=== PATIENT | male | born 1965 | race Caucasian/White ===

== ENCOUNTER 2016-05-26 01:08 | Emergency (ER) | payer OTHER ==
[2016-05-26 01:15] VITALS: RESP 18
[2016-05-26] MEDS ORDERED: IPRATROPIUM-ALBUTEROL 3 ML NEB INHALATION STA (01:39)
[2016-05-26] MEDS ORDERED: RX INFO: IV CONTRAST WAS GIVEN 1 EACH MISC MISCELLANE PRN (01:39)
[2016-05-26] MEDS ORDERED: methylPREDNISolone SOD SUCCI 125 MG/2 ML VIAL IV STA (01:39)
[2016-05-26 02:15] LABS: Anion Gap 15 mmol/L; Aty Lym Flag Marked; Blood Urea Nitrogen 10 mg/dL (9-20); CH 31.6; CHCM 34.2; Calcium 9.4 mg/dL (8.4-10.2); Carbon Dioxide 18 mmol/L (22-30); Chloride 109 mmol/L (98-107); Glucose 107 mg/dL (74-99); HDW 2.35; HGB 15.8 gm/dL (13.0-17.5); MCH 30.5 pg (25.0-35.0); MCHC 32.9 g/dL (31.0-37.0); MCV 92.8 fL (80.0-100.0); Mean Platelet Volume 6.7; Non-African American GFR(MDRD) >60 (>60 ml/min/1.73 sqM); Potassium 4.3 mmol/L (3.5-5.1); RBC 5.18 m/uL (4.30-5.90); RDW 13.6 % (11.5-15.5); Sodium 142 mmol/L (137-145); WBC 10.2 k/uL (3.8-10.6); WBC (Perox) 9.97
[2016-05-26 02:55] LABS: Add Differential Manual Differential
[2016-05-26 02:58] LABS: Manual Review Performed; Nucleated Red Blood Cells 0 /100 WBC (0-0); Total Cells Counted 100
[2016-05-26] MEDS ORDERED: ONDANSETRON 4 MG/2 ML VIAL IVP STA (02:58)
--- NOTE | 2016-05-26 03:10 | CT ---
INDICATION: Hemoptysis TECHNIQUE: CT acquisition was performed through the chest following the administration of IV contrast. Coronal and sagittal reformatted images were provided. DOSIMETRY: CTDIvol 8.40 mGy; Total DLP 313.10 mGy-cm COMPARISON: None. FINDINGS: Thoracic aorta and main pulmonary artery are normal in course and caliber. Heart size is normal and there is no pericardial effusion. Multicompartment mediastinal lymph nodes are not significant by size criteria. There is moderate-severe paraseptal emphysema in the upper lobes and mild paraseptal emphysema in the lower lobes. There is a large bulla at the right lung apex measuring 7.6 cm AP x 7.3 cm transverse x 4.0 cm craniocaudal. There are patchy groundglass opacities in the apical posterior left upper lobe and in the bilateral dependent lower lobes, left greater than right. There is no pleural effusion or pneumothorax. Visualized upper abdomen is unremarkable. There are no acute osseous findings. IMPRESSION: 1. Areas of groundglass opacity in the left upper lobe and bilateral lower lobes, nonspecific, differential includes atypical pneumonia, smoking related lung disease, or less likely areas of mild pulmonary hemorrhage. Imaging follow-up recommended. 2. Paraseptal emphysema, moderate-severe in the upper lobes with large right apical bulla measuring 7.6 x 7.3 x 4.0 cm.
[2016-05-26] MEDS ORDERED: LEVOFLOXACIN 750MG-D5W PMX 750 MG in DEXTROSE/WATER 1 150ML.BAG IVPB STA (04:38)
--- NOTE | 2016-05-26 04:46 | ED ---
URI HPI - General Chief Complaint: Upper Respiratory Infection Stated Complaint: Chest Tight/Coughing up Blood Time Seen by Provider: 05/26/16 01:27 Source: patient Mode of arrival: ambulatory Limitations: no limitations - History of Present Illness Initial Comments: Resented with the coughing up blood, he been spitting up blood for about 2.5 days he is a smoker and has been smoking for quite some time denies any fever or chills he did spit up bright red blood when I was observing him in the ER. Complaining about chills chest pain shortness of breath for the last 5 days also very tired and fatigued. Denies any headaches no blurred vision no abdominal pain no frequency urgency dysuria no signs of TIA or CVA - Related Data Home Medications Medication Instructions Recorded Confirmed No Known Home Medications [No 05/26/16 05/26/16 Known Home Medications] Allergies Allergy/AdvReac Type Severity Reaction Status Date / Time No Known Allergies Allergy Verified 05/26/16 01:15 Review of Systems ROS Statement: Those systems with pertinent positive or pertinent negative responses have been documented in the HPI. ROS Other: All systems not noted in ROS Statement are negative. Past Medical History Past Medical History: No Reported History History of Any Multi-Drug Resistant Organisms: None Reported Past Surgical History: No Surgical Hx Reported Past Psychological History: No Psychological Hx Reported Smoking Status: Current every day smoker Past Alcohol Use History: Occasional Past Drug Use History: Marijuana General Exam - General Exam Comments Initial Comments: General: The patient is awake and alert, in no distress, and does not appear acutely ill. Skin: Skin is warm and dry and no rashes or lesions are noted. Eye: Pupils are equal, round and reactive to light, extra-ocular movements are intact; there is normal conjunctiva bilaterally. Ears, nose, mouth and throat: There are moist mucous membranes and no oral lesions. Neck: The neck is supple, there is no tenderness or JVD. Cardiovascular: There is a regular rate and rhythm. No murmur, rub or gallop is appreciated. Respiratory: To auscultation bilateral, noticed crackles at the bases Gastrointestinal: Soft, non-distended, non-tender abdomen without masses or organomegaly noted. There is no rebound or guarding present. Bowel sounds are unremarkable. Back: There is no tenderness to palpation in the midline. There is no obvious deformity. Musculoskeletal: Normal ROM, no tenderness, There is no pedal edema. There is no calf tenderness or swelling. No cords were appreciated. Neurological: CN II-XII intact, Cranial nerves III through XII are intact. There are no obvious motor or sensory deficits. Coordination appears grossly intact. Speech is normal. Psychiatric: Cooperative, appropriate mood & affect, normal judgment. 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 STEMI like picture in lead 23 and aVF but it's not clearly stemming go to compare that with the old EKG all the other leads look within normal range Medical Decision Making - Lab Data Result diagrams: 05/26/16 01:25 05/26/16 01:25 Lab Results 05/26/16 05/26/16 05/26/16 Range/Units 01:25 01:25 01:25 WBC 10.2 (3.8-10.6) k/uL RBC 5.18 (4.30-5.90) m/uL Hgb 15.8 (13.0-17.5) gm/dL Hct 48.0 (39.0-53.0) % MCV 92.8 (80.0-100.0) fL MCH 30.5 (25.0-35.0) pg MCHC 32.9 (31.0-37.0) g/dL RDW 13.6 (11.5-15.5) % Plt Count 252 (150-450) k/uL Neutrophils % (Manual) 49.0 % Lymphocytes % (Manual) 38.0 % Monocytes % (Manual) 9.0 % Eosinophils % (Manual) 4.0 % Neutrophils # (Manual) 5.0 (1.3-7.7) k/uL Lymphocytes # (Manual) 3.9 (1.0-4.8) k/uL Monocytes # (Manual) 0.9 (0-1.0) k/uL Eosinophils # (Manual) 0.4 (0-0.7) k/uL Nucleated RBCs 0 (0-0) /100 WBC Manual Slide Review Performed D-Dimer 0.21 (<0.60) mg/L FEU Sodium 142 (137-145) mmol/L Potassium 4.3 (3.5-5.1) mmol/L Chloride 109 H (98-107) mmol/L Carbon Dioxide 18 L (22-30) mmol/L Anion Gap 15 mmol/L BUN 10 (9-20) mg/dL Creatinine 0.80 (0.66-1.25) mg/dL Est GFR (MDRD) Af Amer >60 (>60 ml/min/1.73 sqM) Est GFR (MDRD) Non-Af >60 (>60 ml/min/1.73 sqM) Glucose 107 H (74-99) mg/dL Calcium 9.4 (8.4-10.2) mg/dL Troponin I (0.000-0.034) ng/mL Influenza Type A RNA (Not Detectd) Influenza Type B (PCR) (Not Detectd) 05/26/16 05/26/16 Range/Units 01:25 01:25 WBC (3.8-10.6) k/uL RBC (4.30-5.90) m/uL Hgb (13.0-17.5) gm/dL Hct (39.0-53.0) % MCV (80.0-100.0) fL MCH (25.0-35.0) pg MCHC (31.0-37.0) g/dL RDW (11.5-15.5) % Plt Count (150-450) k/uL Neutrophils % (Manual) % Lymphocytes % (Manual) % Monocytes % (Manual) % Eosinophils % (Manual) % Neutrophils # (Manual) (1.3-7.7) k/uL Lymphocytes # (Manual) (1.0-4.8) k/uL Monocytes # (Manual) (0-1.0) k/uL Eosinophils # (Manual) (0-0.7) k/uL Nucleated RBCs (0-0) /100 WBC Manual Slide Review D-Dimer (<0.60) mg/L FEU Sodium (137-145) mmol/L Potassium (3.5-5.1) mmol/L Chloride (98-107) mmol/L Carbon Dioxide (22-30) mmol/L Anion Gap mmol/L BUN (9-20) mg/dL Creatinine (0.66-1.25) mg/dL Est GFR (MDRD) Af Amer (>60 ml/min/1.73 sqM) Est GFR (MDRD) Non-Af (>60 ml/min/1.73 sqM) Glucose (74-99) mg/dL Calcium (8.4-10.2) mg/dL Troponin I <0.012 (0.000-0.034) ng/mL Influenza Type A RNA Not Detected (Not Detectd) Influenza Type B (PCR) Not Detected (Not Detectd) Disposition Clinical Impression: Hemoptysis, Pneumonia, Pulmonary hemorrhage Disposition: ADMITTED IP TO THIS HOSP Condition: Good
[2016-05-26 05:47] VITALS: TEMP 97.6
[2016-05-26] MEDS ORDERED: NALOXONE 0.4 MG/ML 1 ML VIAL IV PRN (06:02)
[2016-05-26] MEDS ORDERED: ACETAMINOPHEN TAB 325 MG TAB PO PRN (06:02)
[2016-05-26] MEDS ORDERED: ONDANSETRON 4 MG/2 ML VIAL IVP PRN (06:02)
[2016-05-26] MEDS ORDERED: HYDROmorphone 2 MG TAB PO PRN (06:02)
[2016-05-26 07:22] VITALS: BP 107/60; PULSE 107
== END 2016-05-26 09:00 | disposition left against medical advice (07) ==
LOC: EC 01:08 → 6SEL 06:02 → UNDOADMIN 06:02 → UNDODISIN 09:10
DX: J18.9 Pneumonia, unspecified organism (principal); R04.2 Hemoptysis; R04.89 Hemorrhage from other sites in respiratory passages; F17.200 Nicotine dependence, unspecified, uncomplicated
CPT/HCPCS: 99284 ×2; 96365 ×2; 96366 ×2; 96375 ×2; 36415; 94640; 93005; 85379; 80048; 84484; 85025; 87502; 71260; J2930; J1956; Q9967; 99285

== ENCOUNTER 2021-01-28 11:09 | Observation (INO) | payer OTHER ==
[2021-01-28] MEDS ORDERED: SODIUM CHLORIDE 0.9% 1,000 ML IV STA (12:01)
[2021-01-28] MEDS ORDERED: VANCOMYCIN IV PER PHARMACY 1 EACH MISC MISCELLANE PRN ×2 (12:01→14:15)
[2021-01-28] MEDS ORDERED: ONDANSETRON 4 MG/2 ML VIAL IVP STA (12:01)
[2021-01-28] MEDS ORDERED: PIPERACILLIN-TAZOBACTAM 3.375 GM in SODIUM CHLORIDE 0.9% 100 ML IVPB STA (12:01)
[2021-01-28] MEDS ORDERED: HYDROmorphone 1 MG/ML 1 ML SYRINGE IVP STA ×2 (12:01→14:14)
[2021-01-28] MEDS ORDERED: KETOROLAC 30 MG/ML 1 ML VIAL IVP STA (12:17)
[2021-01-28 12:39] LABS: HCT 44.2 % (39.0-53.0); HGB 14.9 gm/dL (13.0-17.5); MCH 30.2 pg (25.0-35.0); MCHC 33.8 g/dL (31.0-37.0); MCV 89.4 fL (80.0-100.0); Mean Platelet Volume 7.2; Platelet Count 267 k/uL (150-450); RBC 4.95 m/uL (4.30-5.90); WBC 13.5 k/uL (3.8-10.6)
[2021-01-28 12:51] LABS: Partial Thromboplastin Time 25.1 sec (22.0-30.0); Prothrombin Time 10.4 sec (9.0-12.0)
[2021-01-28 12:53] LABS: ALT 17 U/L (4-49); AST 20 U/L (17-59); African American GFR (CKD) >90 (>60 ml/min/1.73 sqM); Albumin 3.7 g/dL (3.5-5.0); Alkaline Phosphatase 81 U/L (38-126); Anion Gap 11 mmol/L; Blood Urea Nitrogen 10 mg/dL (9-20); Calcium 9.2 mg/dL (8.4-10.2); Carbon Dioxide 22 mmol/L (22-30); Chloride 103 mmol/L (98-107); Glucose 122 mg/dL (74-99); Non-African American GFR(CKD) >90 (>60 ml/min/1.73 sqM); Potassium 3.6 mmol/L (3.5-5.1); Sodium 136 mmol/L (137-145); Total Bilirubin 0.5 mg/dL (0.2-1.3); Total Protein 6.8 g/dL (6.3-8.2)
[2021-01-28] MEDS ORDERED: VANCOMYCIN 1,750 MG in SODIUM CHLORIDE 0.9% 500 ML 500 ML IVPB ONE (13:00)
--- NOTE | 2021-01-28 13:18 | XR ---
EXAMINATION TYPE: XR hand complete LT DATE OF EXAM: 01/28/2021 CLINICAL HISTORY: Pain and swelling and redness after work injury worse over fifth finger TECHNIQUE: Frontal, lateral and oblique images of the left hand are obtained. COMPARISON: None. FINDINGS: Moderate soft tissue swelling over fifth finger. Incomplete extension of the phalanges wit h mild soft tissue swelling over other digits. Punctate 1 mm radiodense foreign body in the soft tiss ue near level of second metacarpal head. There is no acute fracture/dislocation evident in the left h and. Mild to moderate narrowing throughout the PIP and DIP joints. No suspicious bony destruction. IMPRESSION: As above.
--- NOTE | 2021-01-28 13:45 | ED ---
General Adult HPI - General Source: patient, RN notes reviewed Mode of arrival: wheelchair Limitations: no limitations <Shiloh Mayer - Last Filed: 01/28/21 23:30> <Kyle Moya - Last Filed: 01/29/21 07:45> - General Chief complaint: Extremity Injury, Upper Stated complaint: Hand infection Time Seen by Provider: 01/28/21 11:43 - History of Present Illness Initial comments: 55-year-old male presents to the emergency department for evaluation of injury to the left hand. 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 Patient states the injury was very unremarkable and was not bothersome until this week when it became more painful and he developed swelling. Patient states the purplish discoloration to his fifth digit did not occur until yesterday and is now accompanied by a significant amount of pain. Patient states the injury was not traumatic or constricting therefore he was not evaluated prior to today. Patient states he is able to sense touch, but has pain with movement and palpation. States the remainder of his hand does feel swollen and mildly uncomfortable. Patient denies fever, chills, headache, chest pain, shortness of breath, or difficulty breathing. Denies any additional injuries. (Shiloh Mayer) - Related Data Home Medications Medication Instructions Recorded Confirmed No Known Home Medications 05/26/16 01/28/21 Allergies Allergy/AdvReac Type Severity Reaction Status Date / Time No Known Allergies Allergy Verified 01/28/21 11:57 Review of Systems ROS Other: All systems not noted in ROS Statement are negative. <Shiloh Mayer - Last Filed: 01/28/21 23:30> ROS Other: All systems not noted in ROS Statement are negative. <Kyle Moya - Last Filed: 01/29/21 07:45> ROS Statement: Those systems with pertinent positive or pertinent negative responses have been documented in the HPI. Past Medical History Past Medical History: No Reported History History of Any Multi-Drug Resistant Organisms: None Reported Past Surgical History: No Surgical Hx Reported Past Psychological History: No Psychological Hx Reported Smoking Status: Current every day smoker Past Alcohol Use History: Occasional Past Drug Use History: Marijuana <Shiloh Mayer - Last Filed: 01/28/21 23:30> General Exam Limitations: no limitations General appearance: alert, in no apparent distress, other (Well-developed, well- nourished male in no acute distress. Initial temperature 97.7, pulse 125, respirations 18, blood pressure 116/76, pulse ox 99% on room air) Eye exam: Present: normal appearance, PERRL. Absent: scleral icterus, conjunctival injection, periorbital swelling, periorbital tenderness Neck exam: Present: normal inspection. Absent: tenderness, meningismus, lymphadenopathy Respiratory exam: Present: normal lung sounds bilaterally. Absent: respiratory distress, wheezes, rales, rhonchi, stridor Cardiovascular Exam: Present: normal rhythm, tachycardia GI/Abdominal exam: Present: soft, normal bowel sounds. Absent: distended, tenderness, guarding, rebound, rigid Left Forearm Wrist exam: Present: normal inspection, full ROM. Absent: tenderness, swelling Hand Wrist exam: Present: tenderness, swelling, ecchymosis, other (Diffuse mild edema of the left hand and all 5 digits, however, fifth digit is significantly swollen and discolored with a blisterlike appearance on the dorsal surface; it is unblanchable; sensation intact, range of motion decreased.) Vascular: Present: vascular compromise (Diminished capillary refill left fifth digit), radial pulse, brachial pulse, ulnar pulse Neurological exam: Present: alert, oriented X3, CN II-XII intact Psychiatric exam: Present: normal affect, normal mood Skin exam: Present: warm, dry, intact. Absent: rash <Shiloh Mayer - Last Filed: 01/28/21 23:30> Course <Shiloh Mayer - Last Filed: 01/28/21 23:30> <Kyle Moya - Last Filed: 01/29/21 07:45> Vital Signs 01/28/21 01/28/21 01/28/21 11:18 14:00 16:00 Temperature 97.7 F 96 F L 97.8 F Pulse Rate 125 H 80 85 Respiratory 18 18 18 Rate Blood Pressure 168/76 105/60 107/65 O2 Sat by Pulse 99 98 95 Oximetry - Reevaluation(s) Reevaluation #1: 01/28/21 13:45 Rates pain 7 out of 10 and states this is tolerable. Declines need for any further pain medication. (Shiloh Mayer) Reevaluation #2: 01/28/21 14:[address] Coppola who will see this patient in consultation. She did recommend I&D which was performed in the emergency department. This was a very superficial pus filled bulla of the fifth digit left hand. Copious amounts of pus was obtained. Culture was sent. The patient will be admitted to internal medicine with orthopedics on consult. 01/29/21 07:44 (Kyle Moya) Procedures - Incision & Drainage Consent Obtained: verbal consent Site: hand Size (cm): 6 I&D Cleaning Method: Chloroprep Sterile Field Used?: No Scalpel Used: #11 Needle Aspiration Performed?: No Irrigation Performed?: Yes I&D Drainage Obtained: Pus Culture Obtained?: Yes Patient Tolerated Procedure: well <Kyle Moya - Last Filed: 01/29/21 07:45> Medical Decision Making - Lab Data Result diagrams: 01/28/21 12:22 01/28/21 12:22 - Radiology Data Radiology results: report reviewed, image reviewed <MorenoShiloh - Last Filed: 01/28/21 23:30> - Lab Data Result diagrams: 01/28/21 12:22 01/28/21 12:22 <Kyle Moya - Last Filed: 01/29/21 07:45> - Medical Decision Making 55-year-old male with no past medical history presents to the emergency department for evaluation of injury to the fifth digit of the left hand. Upon exam, left hand and digits 1 through 4 are mildly swollen with no discoloration. However, fifth digit is pale and has a purplish hue with significant edema and an extensive blister appearing fluid-filled area. No loss of sensation; decreased range of motion secondary to pain and swelling. Patient was given IV antibiotics and pain medication. Laboratory studies were reviewed; patient has a mildly elevated white blood cell count of 13.5. This patient's care was discussed with my attending, Dr. Moya, who spoke with Dr. Coppola for orthopedics. Incision and drainage of the affected digit per Dr. Moya alleviated a significant amount of discomfort and resulted in copious amount of drainage. Patient will be admitted to medicine with a consult to orthopedics for further evaluation of the injured left fifth digit. Pain is well-controlled and patient is agreeable to admission. (Shiloh Mayer) - Lab Data Lab Results 01/28/21 01/28/21 01/28/21 Range/Units 12:22 12:22 12:22 WBC 13.5 H (3.8-10.6) k/uL RBC 4.95 (4.30-5.90) m/uL Hgb 14.9 (13.0-17.5) gm/dL Hct 44.2 (39.0-53.0) % MCV 89.4 (80.0-100.0) fL MCH 30.2 (25.0-35.0) pg MCHC 33.8 (31.0-37.0) g/dL RDW 13.0 (11.5-15.5) % Plt Count 267 (150-450) k/uL MPV 7.2 Neutrophils % (Manual) 85 % Lymphocytes % (Manual) 8 % Monocytes % (Manual) 6 % Basophils % (Manual) 1 % Neutrophils # (Manual) 11.48 H (1.3-7.7) k/uL Lymphocytes # (Manual) 1.08 (1.0-4.8) k/uL Monocytes # (Manual) 0.81 (0-1.0) k/uL Basophils # (Manual) 0.14 (0-0.2) k/uL Nucleated RBCs 0 (0-0) /100 WBC Manual Slide Review Performed RBC Morphology Normal PT 10.4 (9.0-12.0) sec INR 1.0 (<1.2) APTT 25.1 (22.0-30.0) sec Sodium 136 L (137-145) mmol/L Potassium 3.6 (3.5-5.1) mmol/L Chloride 103 (98-107) mmol/L Carbon Dioxide 22 (22-30) mmol/L Anion Gap 11 mmol/L BUN 10 (9-20) mg/dL Creatinine 0.79 (0.66-1.25) mg/dL Est GFR (CKD-EPI)AfAm >90 (>60 ml/min/1.73 sqM) Est GFR (CKD-EPI)NonAf >90 (>60 ml/min/1.73 sqM) Glucose 122 H (74-99) mg/dL Plasma Lactic Acid Onur (0.7-2.0) mmol/L Calcium 9.2 (8.4-10.2) mg/dL Total Bilirubin 0.5 (0.2-1.3) mg/dL AST 20 (17-59) U/L ALT 17 (4-49) U/L Alkaline Phosphatase 81 (38-126) U/L Total Protein 6.8 (6.3-8.2) g/dL Albumin 3.7 (3.5-5.0) g/dL Blood Type Blood Type Recheck Bld Type Recheck Status Antibody Screen Spec Expiration Date 01/28/21 01/28/21 Range/Units 12:22 12:22 WBC (3.8-10.6) k/uL RBC (4.30-5.90) m/uL Hgb (13.0-17.5) gm/dL Hct (39.0-53.0) % MCV (80.0-100.0) fL MCH (25.0-35.0) pg MCHC (31.0-37.0) g/dL RDW (11.5-15.5) % Plt Count (150-450) k/uL MPV Neutrophils % (Manual) % Lymphocytes % (Manual) % Monocytes % (Manual) % Basophils % (Manual) % Neutrophils # (Manual) (1.3-7.7) k/uL Lymphocytes # (Manual) (1.0-4.8) k/uL Monocytes # (Manual) (0-1.0) k/uL Basophils # (Manual) (0-0.2) k/uL Nucleated RBCs (0-0) /100 WBC Manual Slide Review RBC Morphology PT (9.0-12.0) sec INR (<1.2) APTT (22.0-30.0) sec Sodium (137-145) mmol/L Potassium (3.5-5.1) mmol/L Chloride (98-107) mmol/L Carbon Dioxide (22-30) mmol/L Anion Gap mmol/L BUN (9-20) mg/dL Creatinine (0.66-1.25) mg/dL Est GFR (CKD-EPI)AfAm (>60 ml/min/1.73 sqM) Est GFR (CKD-EPI)NonAf (>60 ml/min/1.73 sqM) Glucose (74-99) mg/dL Plasma Lactic Acid Onur 1.9 (0.7-2.0) mmol/L Calcium (8.4-10.2) mg/dL Total Bilirubin (0.2-1.3) mg/dL AST (17-59) U/L ALT (4-49) U/L Alkaline Phosphatase (38-126) U/L Total Protein (6.3-8.2) g/dL Albumin (3.5-5.0) g/dL Blood Type O Positive Blood Type Recheck No Previous Record Bld Type Recheck Status CABO Indicated Antibody Screen NEGATIVE Spec Expiration Date 01/31/20212321 - Radiology Data X-ray of the left hand was obtained. Report was reviewed in its entirety. Findings per Dr. Woods include moderate soft tissue swelling over fifth finger. Incomplete extension of the phalanges with mild soft tissue swelling over other digits. 1 mm radiodense foreign body in the soft tissue near the level of the second metacarpal head. No acute fracture or dislocation evident in the left hand. Mild to moderate narrowing throughout the DIP and PIP joints. No suspicious bony destruction. (Shiloh Mayer) Disposition Decision Date: 01/28/21 Decision Time: 14:15 <Shiloh Mayer - Last Filed: 01/28/21 23:30> <Kyle Moya - Last Filed: 01/29/21 07:45> Clinical Impression: Synovitis of finger Disposition: ADMITTED IP TO THIS HOSP
[2021-01-28] MEDS ORDERED: ACETAMINOPHEN TAB 325 MG TAB PO PRN (14:15)
[2021-01-28] MEDS ORDERED: NALOXONE 0.4 MG/ML 1 ML VIAL IV PRN (14:15)
[2021-01-28] MEDS ORDERED: HYDROmorphone 1 MG/ML 1 ML SYRINGE IVP PRN (14:15)
[2021-01-28] MEDS ORDERED: KETOROLAC 15 MG/ML 1 ML VIAL IVP PRN (14:15)
[2021-01-28] MEDS ORDERED: ONDANSETRON 4 MG/2 ML VIAL IVP PRN (14:15)
[2021-01-28] MEDS: SODIUM CHLORIDE 0.9% 1,000 ML IV SCH (14:56)
[2021-01-28 15:20] LABS: Basophils # (M) 0.14 k/uL (0-0.2); Lymphocytes # (M) 1.08 k/uL (1.0-4.8); Monocytes # (M) 0.81 k/uL (0-1.0); Neutrophils # (M) 11.48 k/uL (1.3-7.7); Neutrophils % (M) 85 %; Nucleated Red Blood Cells 0 /100 WBC (0-0); Total Cells Counted 100
[2021-01-28] MEDS ORDERED: PIPERACILLIN-TAZOBACTAM 3.375 GM in SODIUM CHLORIDE 0.9% 100 ML IVPB SCH (16:00)
--- NOTE | 2021-01-28 17:09 | P.HPIM ---
History of Present Illness H&P Date: 01/28/21 Chief Complaint: Left fifth metatarsal 55-year-old man with no significant medical history presented with pain and swelling in his left hand. Patient says that on Monday while he was at work he had an accident in which she slammed his finger against some machinery and hilda a little bit of blood. The following day his hand started to become inflamed and painful and this progressively got worse over the course of the following 4 days. He presents today with significant pain and swelling of his left fifth metatarsal. He denies fevers, chills, nausea, vomiting, chest pain, palpitations, syncope, presyncope, cough, dyspnea, abdominal pain, dysuria, dyschezia, numbness/weakness. He denies loss of sensation in his fingers. In the emergency room, orthopedic surgery was consulted, and recommended incision and drainage of the left fifth metatarsal which was completed in the emergency room and the pus that was drained was cultured which is pending. The fifth metatarsal and hand was then subsequently bandaged, the patient omitted for IV antibiotics as well as orthopedic surgery consultation. Review of Systems All Systems reviewed and pertinent positives and negatives noted in HPI, all other symptoms are negative Past Medical History Past Medical History: No Reported History History of Any Multi-Drug Resistant Organisms: None Reported Past Surgical History: No Surgical Hx Reported Past Psychological History: No Psychological Hx Reported Smoking Status: Current every day smoker Past Alcohol Use History: Occasional Past Drug Use History: Marijuana Medications and Allergies Home Medications Medication Instructions Recorded Confirmed Type No Known Home Medications 05/26/16 01/28/21 History Allergies Allergy/AdvReac Type Severity Reaction Status Date / Time No Known Allergies Allergy Verified 01/28/21 11:57 Physical Exam Osteopathic Statement: *. No significant issues noted on an osteopathic structural exam other than those noted in the History and Physical/Consult. Vitals: Vital Signs Temp Pulse Pulse Resp BP BP Pulse Ox 01/28/21 16:40 97.9 F 83 18 127/84 97 01/28/21 16:00 97.8 F 85 18 107/65 95 01/28/21 14:00 96 F L 80 18 105/60 98 01/28/21 11:18 97.7 F 125 H 18 168/76 99 Intake and Output 11/25/21 11/25/21 11/25/21 06:59 14:59 22:59 Other: Weight 90.718 kg Gen: awake, alert HEENT: normocephalic, atraumatic, good hearing acuity, moist mucous membranes Resp: good air exchange, breathing comfortably with no accessory muscle use, clear to auscultation bilaterally CVS: good distal perfusion x 4, regular rate and rhythm GI: soft, NTTP, ND : no SPT, no CVAT, ochoa catheter not present MSK: no pitting edema, no clubbing Neuro: non-focal, moving all extremities Psych: cooperative, euthymic mood Results CBC & Chem 7: 01/28/21 12:22 01/28/21 12:22 Labs: Abnormal Lab Results - Last 24 Hours (Table) 01/28/21 01/28/21 Range/Units 12:22 12:22 WBC 13.5 H (3.8-10.6) k/uL Neutrophils # (Manual) 11.48 H (1.3-7.7) k/uL Sodium 136 L (137-145) mmol/L Glucose 122 H (74-99) mg/dL Assessment and Plan Assessment: Left-hand teno-synovitis -Admit to observation -Vancomycin, Zosyn -Orthopedic surgery consult -Pain control -IV fluids -wound culture pending Patient is full code
[2021-01-28] MEDS: KETOROLAC 30 MG/ML 1 ML VIAL IVP PRN (18:17)
[2021-01-28] MEDS: PIPERACILLIN-TAZOBACTAM 3.375 GM in SODIUM CHLORIDE 0.9% 100 ML IVPB SCH (19:43)
[2021-01-28] MEDS: VANCOMYCIN 1,500 MG in SODIUM CHLORIDE 0.9% 250 ML IVPB SCH (21:47)
[2021-01-29] MEDS: SODIUM CHLORIDE 0.9% 1,000 ML IV SCH ×3 (03:07→21:31)
[2021-01-29] MEDS: PIPERACILLIN-TAZOBACTAM 3.375 GM in SODIUM CHLORIDE 0.9% 100 ML IVPB SCH (03:07)
[2021-01-29] MEDS: VANCOMYCIN 1,500 MG in SODIUM CHLORIDE 0.9% 250 ML IVPB SCH ×3 (05:15→21:30)
[2021-01-29] MEDS: KETOROLAC 30 MG/ML 1 ML VIAL IVP PRN ×2 (07:54→19:18)
--- NOTE | 2021-01-29 10:09 | P.CNOR ---
<Yue Abarca Alecia - Last Filed: 01/29/21 10:09> History of Present Illness - HPI Consult date: 01/29/21 Consult reason: other (Left small finger infection) History of present illness: The patient is a 55 y/o male who presented to the emergency department yesterday with swelling and pain to the left small finger. He states he pinched it at [employer] last Monday01/23/2021 and didn't think much of it. Swelling and pain in the finger started on Monday and continued to worsen on Monday. Evaluation in the ER revealed a large blister that was full of pus. The blister was opened and cultured in the ER. Gram stain reveals Gram positive cocci, most likely a staph species. The patient was admitted to internal medicine for IV antibiotics and orthopedic hand evaluation. We were consulted for possible I&D. He is currently on Zosyn and Vancomycin. Today, the patient states the finger is feeling better. The finger is very stiff. He denies fever and chills today. WBC yesterday was 13.5. Review of Systems Constitutional: Denies chills, Denies fatigue, Denies fever Cardiovascular: Denies chest pain, Denies shortness of breath Respiratory: Denies cough Gastrointestinal: Denies diarrhea, Denies nausea, Denies vomiting Musculoskeletal: left: hand pain, hand stiffness, hand swelling Past Medical History Past Medical History: No Reported History History of Any Multi-Drug Resistant Organisms: None Reported Past Surgical History: No Surgical Hx Reported Past Anesthesia/Blood Transfusion Reactions: No Reported Reaction Past Psychological History: No Psychological Hx Reported Smoking Status: Current every day smoker Past Alcohol Use History: Occasional Past Drug Use History: Marijuana Medications and Allergies Home Medications Medication Instructions Recorded Confirmed Type Sulfamethox-Tmp 800-160Mg [Bactrim 1 tab PO Q12HR #14 tab 01/30/21 Rx DS 800-160 mg] Allergies Allergy/AdvReac Type Severity Reaction Status Date / Time No Known Allergies Allergy Verified 01/30/21 05:52 Physical Examination The patient is a pleasant 55 y/o male in no acute distress. He is alert and oriented x3. Exam of the left hand reveals ecchymosis under the finger nail and to the dorsal aspect of the left small finger. There is an open wound with nonviable skin where the blister was. There is good tissue to the open area that is clean without signs of purulent drainage at this time. No pain along the flexor or extensor tendons. There is erythema to the MCP joints of the left ring and little fingers. No proximal red streaking present. No pain to palpation into the hand or on the dorsal aspect of the hand. The left small finger is slightly numb according to the patient. Circulatory status is intact with a brisk capillary refill to the finger. Results - Labs Labs: Abnormal Lab Results - Last 24 Hours (Table) 01/28/21 01/28/21 Range/Units 12:22 12:22 WBC 13.5 H (3.8-10.6) k/uL Neutrophils # (Manual) 11.48 H (1.3-7.7) k/uL Sodium 136 L (137-145) mmol/L Glucose 122 H (74-99) mg/dL Microbiology - Last 24 Hours (Table) 01/28/21 14:05 Gram Stain - Preliminary Hand - Left Wound Culture - Preliminary H & H 01/28/21 Range/Units 12:22 Hgb 14.9 (13.0-17.5) gm/dL Hct 44.2 (39.0-53.0) % Coagulation 01/28/21 Range/Units 12:22 INR 1.0 (<1.2) Result Diagrams: 01/28/21 12:22 01/28/21 12:22 - Diagnostic results Wrist/Hand x-ray: image reviewed (X-rays of the left hand reveal soft tissue swelling to the left small finger. Small metallic foreign body near the 2nd metacarpal head that is chronic. ) Assessment and Plan (1) Cellulitis of left hand Status: Acute Code(s): L03.114 - CELLULITIS OF LEFT UPPER LIMB SNOMED Code(s): 79605112 (2) Superficial bacterial infection of skin Status: Acute Code(s): L08.9 - LOCAL INFECTION OF THE SKIN AND SUBCUTANEOUS TISSUE, UNSP; B96.89 - OTH BACTERIAL AGENTS THE CAUSE OF DISEASES CLASSD [facility] SNOMED Code(s): 788829331 Plan: The clinical and x-ray findings were discussed with the patient. The case was discussed at length with Dr. Coppola. No surgical intervention is needed at this time. The infection appears superficial and the I&D in the ER was sufficient in cleaning out the purulent drainage. We recommend continued IV antibiotics at least for another day. Await culture results. The patient may eat today. Warm water and mild soap soaks have been ordered twice daily with dry dressing changes. He was encouraged to start moving the finger gently. We will continue to follow the patient closely and make further recommendations as needed. <Narcisa Coppola - Last Filed: 01/31/21 07:37> Physical Examination Osteopathic Statement: *. No significant issues noted on an osteopathic structural exam other than those noted in the History and Physical/Consult. Results - Labs Labs: Microbiology - Last 24 Hours (Table) 01/28/21 14:05 Gram Stain - Final Hand - Left Wound Culture - Final Methicillin resist S. aureus 01/28/21 12:20 Blood Culture - Preliminary Blood No Growth after 48 hours 01/28/21 12:05 Blood Culture - Preliminary Blood No Growth after 48 hours H & H 01/28/21 Range/Units 12:22 Hgb 14.9 (13.0-17.5) gm/dL Hct 44.2 (39.0-53.0) % Coagulation 01/28/21 Range/Units 12:22 INR 1.0 (<1.2) Result Diagrams: 01/28/21 12:22 01/28/21 12:22 Assessment and Plan Plan: Agree with above plan. Infection seems very superficial and was drained by the ER. It will likely improved with IV ABX and soaks. We'll continue to follow.
--- NOTE | 2021-01-29 11:33 | P.PN ---
Subjective Progress Note Date: 01/29/21 Doing well today, swelling has improved. Ortho will follow patient and for now deferring any further debridement as the infection appears superficial and debridement in ER appears adequate. Micro with moderate GPCs. Objective - Vital Signs Vital signs: Vital Signs Temp 98.9 F 01/29/21 07:00 Pulse 85 01/29/21 07:00 Resp 16 01/29/21 07:00 BP 125/71 01/29/21 07:00 Pulse Ox 97 01/29/21 07:00 Intake & Output 01/28/21 01/29/21 01/29/21 18:59 06:59 18:59 Intake Total 240 Balance 240 Weight 90.718 kg Intake: Oral 240 Other: # Voids 2 - Exam Gen: awake, alert HEENT: normocephalic, atraumatic, good hearing acuity, moist mucous membranes Resp: good air exchange, breathing comfortably with no accessory muscle use, clear to auscultation bilaterally CVS: good distal perfusion x 4, regular rate and rhythm GI: soft, NTTP, ND : no SPT, no CVAT, ochoa catheter not present MSK: no pitting edema, no clubbing Neuro: non-focal, moving all extremities Psych: cooperative, euthymic mood - Labs CBC & Chem 7: 01/28/21 12:22 01/28/21 12:22 Labs: Abnormal Lab Results - Last 24 Hours (Table) 01/28/21 01/28/21 Range/Units 12:22 12:22 WBC 13.5 H (3.8-10.6) k/uL Neutrophils # (Manual) 11.48 H (1.3-7.7) k/uL Sodium 136 L (137-145) mmol/L Glucose 122 H (74-99) mg/dL Microbiology - Last 24 Hours (Table) 01/28/21 14:05 Gram Stain - Preliminary Hand - Left Wound Culture - Preliminary Assessment and Plan Assessment: Left-hand teno-synovitis -Admit to observation -Vancomycin -Zosyn d/c'd -Orthopedic surgery consult -Pain control -IV fluids -wound culture with GPCs Patient is full code
[2021-01-30] MEDS: VANCOMYCIN 1,500 MG in SODIUM CHLORIDE 0.9% 250 ML IVPB SCH (05:45)
[2021-01-30 08:14] VITALS: BP 125/81; PULSE 64; RESP 18; TEMP 98.3
--- NOTE | 2021-01-30 08:55 | P.PN ---
Subjective Progress Note Date: 01/30/21 Principal diagnosis: Left small finger infection The patient is a 55 y/o male who presented to the emergency department yesterday with swelling and pain to the left small finger. He states he pinched it at work last Monday01/23/2021 and didn't think much of it. Swelling and pain in the finger started on Monday and continued to worsen on Monday. Evaluation in the ER revealed a large blister that was full of pus. The blister was opened and cultured in the ER. Gram stain reveals Gram positive cocci, most likely a staph species. The patient was admitted to internal medicine for IV antibiotics and orthopedic hand evaluation. We were consulted for possible I&D. He is currently on Zosyn and Vancomycin. 01/29/2021: The patient states the finger is feeling better. The finger is very stiff. He denies fever and chills today. WBC yesterday was 13.5. 01/30/2021: The finger continues to improve. He has been soaking the finger and applying the dressing. No new complaints today. Cultures are revealing MRSA. Objective - Vital Signs Vital signs: Vital Signs Temp 98.3 F 01/30/21 07:00 Pulse 64 01/30/21 07:00 Resp 18 01/30/21 07:00 BP 125/81 01/30/21 07:00 Pulse Ox 97 01/30/21 07:00 Intake & Output 01/29/21 01/30/21 01/30/21 18:59 06:59 18:59 Output Total 0 Balance 0 Output: Emesis 0 Other: Voiding Method Toilet # Voids 4 1 - Exam The patient is a pleasant 55 y/o male in no acute distress. He is alert and oriented x3. Exam of the left hand reveals ecchymosis under the finger nail and to the dorsal aspect of the left small finger. There is an open wound with nonviable skin where the blister was. There is good tissue to the open area that is clean without signs of purulent drainage at this time. No pain along the flexor or extensor tendons. There is improving erythema to the MCP joints of the left ring and little fingers. No proximal red streaking present. No pain to palpation into the hand or on the dorsal aspect of the hand. The left small finger is slightly numb according to the patient. Circulatory status is intact with a brisk capillary refill to the finger. - Labs CBC & Chem 7: 01/28/21 12:22 01/28/21 12:22 Labs: Microbiology - Last 24 Hours (Table) 01/28/21 14:05 Gram Stain - Preliminary Hand - Left Wound Culture - Preliminary Presumptive MRSA 01/28/21 12:20 Blood Culture - Preliminary Blood No Growth after 24 hours 01/28/21 12:05 Blood Culture - Preliminary Blood No Growth after 24 hours Assessment and Plan (1) Cellulitis of left hand Current Visit: Yes Status: Acute Code(s): L03.114 - CELLULITIS OF LEFT UPPER LIMB SNOMED Code(s): 89944029 (2) Superficial bacterial infection of skin Current Visit: Yes Status: Acute Code(s): L08.9 - LOCAL INFECTION OF THE SKIN AND SUBCUTANEOUS TISSUE, UNSP; B96.89 - OTH BACTERIAL AGENTS THE CAUSE OF DISEASES CLASSD [facility] SNOMED Code(s): 060959493 Plan: The clinical and x-ray findings were discussed with the patient. The case was discussed at length with Dr. Coppola. No surgical intervention is needed at this time. The infection appears superficial and the I&D in the ER was sufficient in cleaning out the purulent drainage. Warm water and mild soap soaks have been ordered twice daily with dry dressing changes. He was encouraged to start moving the finger gently. We will sign off at this time and he will follow up in our office upon discharge. Antibiotics per internal medicine.
[2021-01-30] MEDS ORDERED: VANCOMYCIN TROUGH DUE 1 EACH MISC MISCELLANE ONE (12:00)
--- NOTE | 2021-01-30 13:00 | P.DS ---
Providers Date of admission: 01/28/21 14:17 Expected date of discharge: 01/30/21 Attending physician: Hamlet Ordaz MD Consults: 01/28/21 14:16 Consult Physician Routine Consulting Provider: Narcisa Coppola Consult Reason/Comments: left hand Infection Do you want consulting provider notified?: Already Contacted Primary care physician: Stated None Hospital Course: 55-year-old man with no significant medical history presented with pain and swelling in his left hand. Left-hand teno-synovitis -Admitted to observation. Had I&D in the ER. Hand surgery consulted. Wound Care consulted. Vancomycin/zosyn for 1 day, then vancomycin alone on day 2. Cx grew MRSA, with sensitivities pending at discharge. No further debridement needed per orthopedic surgery. Pt discharged on Bactrim DS BID for 7 additional days to be completed as outpatient. Pt will see PCP and ortho in follow up. Assessment: Gen: awake, alert HEENT: normocephalic, atraumatic, good hearing acuity, moist mucous membranes Resp: good air exchange, breathing comfortably with no accessory muscle use, clear to auscultation bilaterally CVS: good distal perfusion x 4, regular rate and rhythm GI: soft, NTTP, ND : no SPT, no CVAT, ochoa catheter not present MSK: no pitting edema, no clubbing Neuro: non-focal, moving all extremities Psych: cooperative, euthymic mood Patient Condition at Discharge: Good Plan - Discharge Summary Discharge Rx Participant: No New Discharge Prescriptions: New Sulfamethox-Tmp 800-160Mg [Bactrim DS 800-160 mg] 1 tab PO Q12HR #14 tab Discharge Medication List Sulfamethox-Tmp 800-160Mg [Bactrim DS 800-160 mg] 1 tab PO Q12HR #14 tab 01/30/21 [Rx] Follow up Appointment(s)/Referral(s): Narcisa Coppola DO [Doctor of Osteopathic Medicine] - 1 Week None,Stated [Primary Care Provider] - 1-2 days Patient Instructions/Handouts: Cellulitis (DC) Activity/Diet/Wound Care/Special Instructions: Continue wound cleansing at home at least daily. Keep wound clean and dry. Daily dressing changes and as needed for drainage. Follow up with Dr. Coppola in 1 week. Antibiotics per internal medicine. Discharge Disposition: HOME SELF-CARE
== END 2021-01-30 11:20 | disposition home or self-care (01) ==
LOC: EC 11:09 → 6NMEDSUR 14:17
PROVIDERS: ADMIT Internal Medicine; ATTEND Internal Medicine
DX: L03.114 Cellulitis of left upper limb (principal); B95.62 Methicillin resistant Staphylococcus aureus infection as the cause of diseases classified elsewhere; M65.9 Synovitis and tenosynovitis, unspecified; F17.200 Nicotine dependence, unspecified, uncomplicated; Y99.0 Civilian activity done for income or pay; Z20.822 Contact with and (suspected) exposure to COVID-19
CPT/HCPCS: 99285; 10060; 96376 ×2; 96366 ×4; 96368; 96365; 96367; 96375; 36415; 86900; 86901; 80053; 83605; 85025; 85610; 85730; 86850; 87040; 87070; 87205; 87077; 87186; 87635; 73130; G0378 ×3; J2543 ×2; J3370 ×3; J2405; J1885 ×2; J1170